=== PATIENT | female | born 1960 | race Caucasian/White ===

== ENCOUNTER 2019-12-03 06:10 | Inpatient (IN) | payer BC ==
[2019-11-29 11:01] VITALS: BMI 59.3
[2019-12-03] MEDS ORDERED: BUPIVACAINE HCL/PF 2.5 MG/ML - 30 ML VIAL IJ ONE (07:20)
[2019-12-03] MEDS ORDERED: BUPIVACAINE HCL 0.25% 125 MG/50 ML VIAL ONE (07:22)
[2019-12-03] MEDS ORDERED: PROPOFOL 20 ML ONE (07:42)
[2019-12-03] MEDS ORDERED: SUCCINYLCHOLINE CHLORIDE 200 MG/10 ML SYRINGE ONE (07:43)
[2019-12-03] MEDS ORDERED: ROCURONIUM BROMIDE 50 MG/5 ML SYRINGE ONE (07:43)
[2019-12-03] MEDS ORDERED: MIDAZOLAM HCL 2 MG/2 ML SINGLE DOSE VIAL ONE (07:43)
[2019-12-03] MEDS ORDERED: ceFAZolin SODIUM 1 GM VIAL ONE (08:21)
[2019-12-03] MEDS ORDERED: BUPIVACAINE HCL/PF 0.25% (2.5MG/ML) 10 ML VIAL IJ ONE (08:43)
[2019-12-03] MEDS ORDERED: DEXAMETHASONE SOD PHOSPHATE 4 MG/1 ML VIAL ONE (08:48)
[2019-12-03] MEDS ORDERED: ONDANSETRON 4 MG/2 ML VIAL ONE (08:48)
[2019-12-03] MEDS ORDERED: GLYCOPYRROLATE 0.2 MG/1 ML VIAL ONE (09:19)
[2019-12-03] MEDS ORDERED: NEOSTIGMINE METHYLSULFATE 0.5 MG/ML - 10 ML MDV ONE (09:19)
[2019-12-03] MEDS ORDERED: HYDROmorphone HCl 2 MG/ML VIAL IVPB PRN (09:27)
[2019-12-03] MEDS ORDERED: SODIUM CHLORIDE 1,000 ML IV SCH (09:30)
[2019-12-03] MEDS ORDERED: LORazepam 2 MG/ML SDV VIAL ONE (09:56)
[2019-12-03] MEDS ORDERED: ACETAMINOPHEN 1000 MG/100 ML VIAL (NON FORMULARY) IVPB ONE (10:02)
[2019-12-03] MEDS: METOCLOPRAMIDE HCL INJECTION 10 MG/2 ML VIAL IVPUSH SCH ×3 (10:05→21:39)
[2019-12-03] MEDS: ACETAMINOPHEN 1000 MG/100 ML VIAL (NON FORMULARY) IVPB SCH ×3 (10:10→21:39)
[2019-12-03] MEDS ORDERED: FAMOTIDINE 20 MG PREMIXED IVPB IVPB ONE (10:13)
[2019-12-03] MEDS ORDERED: hydrALAZINE HCL 20 MG/ML VIAL ONE (10:26)
[2019-12-03] MEDS ORDERED: LABETALOL HCL 5 MG/1 ML (100MG/20 ML VIAL) ONE (10:32)
[2019-12-03 10:34] LABS: HEMATOCRIT 42.2 % (32.4-45.2); HEMOGLOBIN 14.3 GM/dl (10.7-15.3); MCH 29.1 pg (25.7-33.7); MCHC 33.9 g/dl (32.0-36.0); MEAN CELL VOLUME 85.9 fl (80-96); PLATELET COUNT 360 K/MM3 (134-434); RBC 4.91 M/mm3 (3.60-5.2); RDW 14.4 % (11.6-15.6); WHITE BLOOD COUNT 12.6 K/mm3 (4.0-10.8)
[2019-12-03 10:38] LABS: ALBUMIN 3.9 g/dl (3.4-5.0); BILIRUBIN,TOTAL 0.8 mg/dl (0.2-1); CALCIUM 8.4 mg/dl (8.5-10); CREATININE 0.8 mg/dl (0.55-1.3); POTASSIUM 4.7 mmol/L (3.5-5.1); TOT PROT 7.2 g/dl (6.4-8.2)
[2019-12-03] MEDS ORDERED: hydrALAZINE HCL 20 MG/ML VIAL IVPUSH ONE (11:02)
[2019-12-03] MEDS ORDERED: LABETALOL HCL 5 MG/1 ML (100MG/20 ML VIAL) IVPUSH ONE (11:02)
[2019-12-03] MEDS: FAMOTIDINE 20 MG/50 ML IVPB 20 MG/50 ML MG IVPB SCH ×2 (12:52→21:40)
[2019-12-03] MEDS: ONDANSETRON 4 MG/2 ML VIAL IVPUSH SCH ×4 (12:53→21:40)
[2019-12-03] MEDS ORDERED: cloNIDine-TTS 0.1 MG/24 HRS PATCH.TDWK TD ONE (18:00)
[2019-12-03] MEDS: ENOXAPARIN NA (PORCINE) 40 MG/0.4 ML DISP.SYRIN SQ SCH (21:40)
[2019-12-04] MEDS: ONDANSETRON 4 MG/2 ML VIAL IVPUSH SCH ×3 (01:14→10:14)
[2019-12-04] MEDS: METOCLOPRAMIDE HCL INJECTION 10 MG/2 ML VIAL IVPUSH SCH ×2 (03:07→10:14)
[2019-12-04] MEDS: ACETAMINOPHEN 1000 MG/100 ML VIAL (NON FORMULARY) IVPB SCH (03:08)
[2019-12-04] MEDS ORDERED: hydrALAZINE HCL 20 MG/ML VIAL IVPUSH ONE (05:59)
[2019-12-04] MEDS ORDERED: oxyCODONE HCL 5 MG TABLET PO PRN (07:23)
[2019-12-04] MEDS ORDERED: SODIUM CHLORIDE 1,000 ML IV SCH (07:30)
[2019-12-04 08:38] LABS: ALBUMIN 3.6 g/dl (3.4-5.0); BILIRUBIN,TOTAL 0.8 mg/dl (0.2-1); CALCIUM 8.1 mg/dl (8.5-10); CREATININE 0.9 mg/dl (0.55-1.3); POTASSIUM 4.2 mmol/L (3.5-5.1); TOT PROT 6.8 g/dl (6.4-8.2)
[2019-12-04 08:38] LABS: HEMATOCRIT 37.6 % (32.4-45.2); HEMOGLOBIN 12.8 GM/dl (10.7-15.3); MCHC 33.9 g/dl (32.0-36.0); MEAN CELL VOLUME 85.6 fl (80-96); MEAN PLT VOLUME 7.8 fl (7.5-11.1); PLATELET COUNT 347 K/MM3 (134-434); RDW 14.3 % (11.6-15.6); WHITE BLOOD COUNT 13.1 K/mm3 (4.0-10.8)
[2019-12-04] MEDS: FAMOTIDINE 20 MG/50 ML IVPB 20 MG/50 ML MG IVPB SCH (10:14)
[2019-12-04] MEDS: ENOXAPARIN NA (PORCINE) 40 MG/0.4 ML DISP.SYRIN SQ SCH (10:15)
[2019-12-04] MEDS ORDERED: ATENOLOL 50 MG TABLET (FP) PO SCH (11:15)
[2019-12-04 13:59] VITALS: BP 158/71; PULSE 81; TEMP 99.4
== END 2019-12-04 15:40 | disposition home or self-care (01) | DRG 621 ==
LOC: FM/S 06:10
PROVIDERS: ADMIT Surgery; ATTEND Surgery
PROC: 0FB24ZX Excision of Left Lobe Liver, Percutaneous Endoscopic Approach, Diagnostic (ICD-10-PCS; 2019-12-03)
PROC: 0DJ04ZZ Inspection of Upper Intestinal Tract, Percutaneous Endoscopic Approach (ICD-10-PCS; 2019-12-03)
PROC: 0DB64Z3 Excision of Stomach, Percutaneous Endoscopic Approach, Vertical (ICD-10-PCS; principal; 2019-12-03 07:56)
DX: E66.01 Morbid (severe) obesity due to excess calories (principal); Z68.44 Body mass index [BMI] 60.0-69.9, adult; I10 Essential (primary) hypertension; R16.0 Hepatomegaly, not elsewhere classified; G47.30 Sleep apnea, unspecified
CPT/HCPCS: 36415; 74240-TC-FY; 80053; 85027; 88305-TC; 93005; 94760; J0131